=== PATIENT | male | born 1980 | race Caucasian/White ===

== ENCOUNTER 2020-10-11 14:39 | Emergency (ER) | payer OTHER, SELFPAY ==
[2020-10-11 14:39] VITALS: BP 139/89; PULSE 95; RESP 18; TEMP 35.9; O2SAT 100; BMI 29.8
--- NOTE | 2020-10-11 14:52 | ED.VISSUMM ---
- ER Visit Summary Date of Service: 10/11/20 Chief Complaint: Rash History of Present Illness: The patient is a 40 M who presents with a rash that has been getting worse over the past 5 days. Patient states it is hot and pruritic. Patient states nothing makes it better or worse. Patient denies any new soaps, foods, shampoos, laundry detergents, fabric softeners, or other new exposures. Patient denies any difficulty breathing or difficulty swallowing. Patient denies any discharge or drainage. Patient states he went to an urgent care and they told him that they did not know what it was but it should clear up. Physical Examination: Vital signs are stable. Patient is afebrile. Patient is in no acute distress. Oral mucosa is pink and moist. Oropharynx is clear. Airway is patent. Neck is supple. Trachea is midline. There is no JVD or lymphadenopathy noted. Skin is warm and dry. There is diffuse patchy erythematous macular rash. There are no vesicles or pustules. There are no petechia noted. There is no involvement of the mucous membranes. There are no lesions noted on the face or head. Radial nerves II through XII are intact. There are no focal motor or sensory deficits. Emergency Department Course and Treatment: Patient was given a dose of prednisone here. Patient was given a prescription for prednisone. Patient was instructed to follow-up with his primary care physician in 5 to 7 days. Patient was instructed to return if worse in any way. Patient understood and was agreeable with the plan. All questions were answered. Disposition: Discharge home Impression: 1. Dermatitis This note was generated with [employer] dictation software. It may contain incorrect words, spelling, and punctuation that were not noted in review of the chart prior to signing ED Disposition - Plan for ED Patient: Disposition: Home or Assisted Living Diagnosis: Dermatitis Instructions: ED Atopic Dermatitis (Adult) Prescriptions: Prednisone [Deltasone] 60 mg PO DAILY #15 tab Prescription Printed
[2020-10-11 15:02] VITALS: RESP 16
[2020-10-11] MEDS: predniSONE 20 MG Tablet 60 MG PO (15:02)
== END 2020-10-11 15:27 | disposition home or self-care (01) ==
LOC: ED 15:21
PROVIDERS: Emergency Provider Emergency Medicine
DX: L30.9 Dermatitis, unspecified (principal); Z72.0 Tobacco use
CPT/HCPCS: 99283